=== PATIENT | female | born 1985 | race African-American/Black ===

== ENCOUNTER → 2018-08-22 | Day surgery (SDC) | payer OTHER ==
--- NOTE | 2018-08-23 10:38 | PATH ---
Surgical Pathology Report Patient Name: ANA RON [facility]. Rec. #: [id number] /Age/Gender: 1985 (Age: 33) / F Account: [id number] Location: [facility] Taken: 08/22/2018 Received: 08/22/2018 Reported: 08/23/2018 Physicians: Mahnaz Dickson MD Specimen(s) Received LEFT BREAST 7:00 Clinical History Non palpable lesion Ultrasound findings: Probably benign 0.6 CM lesion Final Diagnosis BREAST, LEFT, 7:00, CORE BIOPSY:BENIGN BREAST TISSUE WITH STROMAL FIBROSIS. Electronically Signed Stephanie Menjivar M.D. Gross Description Received in formalin labeled "left 7:00," are 5 tyler-yellow, cylindrical portions of fibroadipose tissue ranging from 0.2-0.7 cm in length and averaging 0.1 cm in diameter. The specimens are submitted in toto in one cassette. Time to formalin fixation: Less than one minute Total formalin fixation time: Approximately 10 hours. 08/22/2018 [facility]08/22/2018
== END | disposition home or self-care (01) ==
LOC: JRADUS-SUR 08:14
PROVIDERS: ATTEND Family Medicine
PROC: 0HBU3ZX Excision of Left Breast, Percutaneous Approach, Diagnostic (ICD-10-PCS; principal; 2018-08-22)
DX: N60.32 Fibrosclerosis of left breast (principal)
CPT/HCPCS: 19083; 87899; 88305-TC; A4648

== ENCOUNTER 2022-02-11 14:56 | Emergency (ER) | payer SELFPAY ==
[2022-02-11 15:36] VITALS: BP 115/64; PULSE 88; TEMP 98; BMI 31.7
[2022-02-11] MEDS ORDERED: KETOROLAC TROMETHAMINE 30 MG/1 ML VIAL IM ONE (16:33)
[2022-02-11] MEDS ORDERED: KETOROLAC TROMETHAMINE 30 MG/1 ML VIAL ONE (17:12)
[2022-02-11] MEDS ORDERED: IBUPROFEN 600 MG TABLET (FP) PO ONE ×2 (17:49→17:50)
[2022-02-11] MEDS ORDERED: ALBUTEROL SO4 2.5/IPRATROPIUM 0.5 INH SOL 3 ML VIAL.NEB. NEB ONE ×2 (18:15→18:18)
== END 2022-02-11 19:18 | disposition home or self-care (01) ==
LOC: JER 14:56
DX: U07.1 COVID-19 (principal)
CPT/HCPCS: 0241U-QW; 87651; 87807; 99283-25; C9803-CS; U0003; U0005

== ENCOUNTER 2023-10-13 06:30 | Emergency (ER) | payer OTHER ==
[2023-10-13 06:37] VITALS: TEMP 98.3; BMI 31.6
[2023-10-13] MEDS ORDERED: ONDANSETRON 4 MG/2 ML VIAL IVPUSH ONE (07:48)
[2023-10-13] MEDS ORDERED: ACETAMINOPHEN 1000 MG/100 ML BAG IVPB ONE (07:48)
[2023-10-13] MEDS ORDERED: SODIUM CHLORIDE 1,000 ML IV STA (07:48)
[2023-10-13] MEDS ORDERED: ONDANSETRON 4 MG/2 ML VIAL ONE (07:52)
[2023-10-13] MEDS ORDERED: ACETAMINOPHEN INJECTION 100 ML IVPB ONE (07:52)
[2023-10-13 08:31] LABS: INR 1.02 (0.83-1.09); PROTHROMBIN TIME (PATIENT) 11.8 SEC (9.7-13.0)
[2023-10-13 08:33] LABS: ACTIVATED PTT 28.9 SECONDS (25.2-36.5)
[2023-10-13 08:36] LABS: BASO % 0.8 % (0-2.0); EOS % 1.8 % (0-4.5); HEMATOCRIT 37.5 % (32.4-45.2); HEMOGLOBIN 12.4 GM/dL (10.7-15.3); LYMPH % 16.5 % (8-40); MCH 30.8 pg (25.7-33.7); MEAN CELL VOLUME 93.3 fl (80-96); MEAN PLT VOLUME 9.1 fl (7.5-11.1); MONO % 7.7 % (3.8-10.2); NEUT % 73.2 % (42.8-82.8); PLATELET COUNT 283 10^3/uL (134-434); RBC 4.01 M/mm3 (3.60-5.2); RDW 13.1 % (11.6-15.6); WHITE BLOOD COUNT 5.4 K/mm3 (4.0-10.0)
[2023-10-13 08:39] LABS: POTASSIUM 4.4 mmol/L (3.5-5.1)
[2023-10-13 08:40] LABS: CALCIUM 9.1 mg/dL (8.5-10.1)
[2023-10-13 08:41] LABS: ALBUMIN 3.3 g/dl (3.4-5.0); BLOOD UREA NITROGEN 11.1 mg/dL (7-18)
[2023-10-13 08:44] LABS: CREATININE 0.6 mg/dL (0.55-1.3)
[2023-10-13 08:46] LABS: BILIRUBIN,TOTAL 0.3 mg/dL (0.2-1); TOT PROT 7.3 g/dl (6.4-8.2)
[2023-10-13 09:26] LABS: PH,URINE >= 9.0 (5.0-8.0); URINE APPEARANCE CLEAR; URINE BILIRUBIN NEGATIVE (NEGATIVE); URINE COLOR YELLOW; URINE GLUCOSE (UA) NEGATIVE (NEGATIVE); URINE KETONE NEGATIVE (NEGATIVE); URINE LEUK ESTERASE NEGATIVE (NEGATIVE); URINE NITRITE NEGATIVE (NEGATIVE); URINE PROTEIN NEGATIVE (NEGATIVE); URINE UROBILINOGEN 0.2 mg/dL (0.2-1.0)
[2023-10-13 09:28] LABS: HCG,QUALITATIVE URINE Negative
[2023-10-13 10:21] VITALS: BP 99/57; PULSE 59; RESP 20
== END 2023-10-13 10:29 | disposition home or self-care (01) ==
LOC: JER 06:30
PROC: 3E033NZ Introduction of Analgesics, Hypnotics, Sedatives into Peripheral Vein, Percutaneous Approach (ICD-10-PCS; principal; 2023-10-13)
PROC: 3E033GC Introduction of Other Therapeutic Substance into Peripheral Vein, Percutaneous Approach (ICD-10-PCS; 2023-10-13)
PROC: 3E0337Z Introduction of Electrolytic and Water Balance Substance into Peripheral Vein, Percutaneous Approach (ICD-10-PCS; 2023-10-13)
DX: R07.9 Chest pain, unspecified (principal); R00.2 Palpitations; R11.2 Nausea with vomiting, unspecified; R26.81 Unsteadiness on feet; Z20.822 Contact with and (suspected) exposure to COVID-19
CPT/HCPCS: 0241U-QW; 36415; 71046-TC-FY; 80053; 81003; 84484; 84703; 85025; 85610; 85730; 87086; 93005; 93010; 99285-25